=== PATIENT | male | born 2000 ===

== ENCOUNTER 2023-11-02 00:34 | Emergency (ER) | payer MEDICAID ==
[2023-11-01] MEDS: Sodium Chloride 0.9% 10 ML Syringe FLUSH PRN (23:04)
[2023-11-01 23:08] LABS: BASOPHILS PERCENT AUTO 0.2 % (0.0-1.0); EOSINOPHILS PERCENT AUTO 0.3 % (1.0-3.0); HEMATOCRIT 46.1 % (40.0-54.0); HEMOGLOBIN 15.6 g/dL (14.0-18.0); MEAN CORPUSCULAR HEMOGLOBIN 29.2 pg (27.0-34.0); MEAN CORPUSCULAR HGB CONC 33.8 g/dL (33.0-35.0); MEAN CORPUSCULAR VOLUME 86.3 fL (80-100); MONOCYTES PERCENT AUTO 4.2 % (2-8); NEUTROPHILS PERCENT AUTO 83.3 % (42.2-75.2); PLATELET COUNT,PLT 345 10^3/uL (150-450); RED BLOOD CELL COUNT 5.34 10^6/uL (4.6-6.2); WHITE BLOOD CELL COUNT,WBC 16.4 10^3/uL (5.0-10.0)
[2023-11-01 23:24] LABS: A/G RATIO 0.9; ALANINE AMINOTRANSFERASE,ALT 27 U/L (16-63); ALBUMIN 3.9 g/dL (3.4-5.0); ALKALINE PHOSPHATASE 106 U/L (46-116); AMYLASE 20 U/L (25-115); ANION GAP 12.6 mEq/L (7-13); ASPARTATE AMNIOTRANSFERASE,AST 15 U/L (15-37); BILIRUBIN TOTAL 0.8 mg/dL (0.2-1.0); BLOOD UREA NITROGEN,BUN 10 mg/dL (7-18); BUN/CREATININE RATIO 11.8 (No establ ref range); CALCIUM 9.4 mg/dL (8.5-10.1); CARBON DIOXIDE,CO2 28 mmol/L (21-32); CHLORIDE,CL 100 mmol/L (98-107); CREATININE 0.85 mg/dL (0.70-1.30); EST CRCL DRUG DOSING (CG) 145.19 mL/min; GLUCOSE RANDOM 112 mg/dL (70-99); LIPASE 17 U/L (16-77); POTASSIUM,K 3.6 mmol/L (3.5-5.1); PROTEIN TOTAL,TP 8.3 g/dL (6.4-8.2); SODIUM,NA 137 mmol/L (136-145)
[2023-11-01 23:26] LABS: ESTIMATED GFR 126 mL/min (>=60)
[2023-11-01 23:44] LABS: BILIRUBIN,URINE NEGATIVE (NEGATIVE); COLOR,URINE YELLOW (YELLOW); GLUCOSE,URINE NEGATIVE (NEGATIVE); KETONES,URINE 40 (NEGATIVE); LEUKOCYTE ESTERASE,URINE NEGATIVE (NEGATIVE); NITRITE,URINE NEGATIVE (NEGATIVE); OCCULT BLOOD,URINE NEGATIVE (NEGATIVE); PROTEIN,URINE TRACE (NEGATIVE)
[2023-11-01 23:54] LABS: AMPHETAMINES,URINE NEGATIVE (NEGATIVE); BARBITURATES,URINE NEGATIVE (NEGATIVE); BENZODIAZEPINE,URINE NEGATIVE (NEGATIVE); MDMA (ECSTASY), URINE NEGATIVE (NEGATIVE); METHADONE,URINE NEGATIVE (NEGATIVE); METHAMPHETAMINES,URINE NEGATIVE (NEGATIVE); OPIATES,URINE NEGATIVE (NEGATIVE); OXYCODONE,URINE NEGATIVE (NEGATIVE); PHENCYCLIDINE,URINE NEGATIVE (NEGATIVE); TCA,URINE NEGATIVE (NEGATIVE)
[2023-11-01 23:57] LABS: APPEARANCE,URINE SLIGHTLY CLOUDY (CLEAR); BACTERIA,URINE FEW /HPF (0-FEW/HPF); EPITHELIAL CELLS,URINE FEW /HPF (NOT SEEN); MUCUS,URINE MODERATE /LPF (NOT SEEN); RBC,URINE 0-5 /HPF (0-5); WBC,URINE 0-5 /HPF (0-5/HPF)
[2023-11-01 23:58] LABS: AMORPHOUS SEDIMENT,URINE MODERATE /HPF (NOT SEEN)
[2023-11-02] MEDS: Ondansetron 4 MG Tab.DIS PO ONE (00:09)
[2023-11-02] MEDS: GI Cocktail Oral Solution 30 ML PO ONE (00:10)
[2023-11-02] MEDS: Ciprofloxacin in D5W 400 MG in Premix Bag 1 BAG IV ONE (00:13)
== END 2023-11-02 01:22 | disposition home or self-care (01) ==
LOC: DL.ED 00:34
DX: K52.9 Noninfective gastroenteritis and colitis, unspecified (principal)
CPT/HCPCS: 36415; 74018; 80053; 80305; 81001; 82150; 83690; 84484; 85025; 93005; 93010; 96365; 99284; A9270; J0744; J3490